=== PATIENT | female | born 1975 | race Caucasian/White ===

== ENCOUNTER 2022-05-18 13:29 | Outpatient (CLI) | payer BC, SELFPAY ==
[2022-05-18 22:23] LABS: Iron* 65 ug/dL (37-170)
[2022-05-18 22:26] LABS: Albumin* 4.2 g/dL (3.3-5.0); Chloride* 107 mmol/L (96-114); Potassium* 4.5 mmol/L (3.6-5.1); Sodium* 141 mmol/L (135-149)
[2022-05-18 22:28] LABS: Carbon Dioxide* 28 mmol/L (20-32); Cholesterol* 177 mg/dL (90-199); Creatinine* 0.6 mg/dL (0.5-1.5); Estimated Glomerular Filt Rate 111 ml/min
[2022-05-18 22:29] LABS: Alanine Aminotransferase* 31 U/L (4-35); Alkaline Phosphatase* 86 U/L (40-150); Aspartate Amino Transferase* 29 U/L (12-35); Bilirubin Total* 0.7 mg/dL (0.1-1.5); Blood Urea Nitrogen* 12 mg/dL (5-24); Calcium* 9.1 mg/dL (8.4-10.6); Glucose* 84 mg/dL (60-115); HDL Cholesterol* 43 mg/dL (>=50); LDL Cholesterol Calculated 115 mg/dL (<100); Triglycerides* 96 mg/dL (40-149)
[2022-05-18 22:33] LABS: Percent Iron Saturation 19 % (20-50); Total Iron Binding Capacity 337 ug/dL (265-497)
== END 2022-05-18 13:30 | disposition home or self-care (01) ==
PROVIDERS: PCP Nurse Practitioner Family; Visit Provider Nurse Practitioner Family
DX: R53.83 Other fatigue (principal); Z13.6 Encounter for screening for cardiovascular disorders
CPT/HCPCS: 80053; 80061; 83540; 83550; 84443

== ENCOUNTER 2023-03-29 10:19 | Outpatient (CLI) | payer OTHER, BC, SELFPAY | END 2023-03-29 10:20 | disposition home or self-care (01) | LOC: LONREF 10:21 | PROVIDERS: PCP Nurse Practitioner Family; Visit Provider Nurse Practitioner Family | DX: L65.9 Nonscarring hair loss, unspecified (principal); R53.83 Other fatigue | CPT/HCPCS: 84443 ==

== ENCOUNTER 2023-06-28 12:35 | Outpatient (CLI) | payer OTHER, BC, SELFPAY ==
--- OUTSIDE RECORDS SUMMARY | 2023-06-28 12:55 | XMS_ITS | Encounter Summary ---
Author Name Unknown Organization [facility] Address [address] [place] [address] Care Team Providers Care Pouncer Name Role Phone Elsewhere, Pcp Primary Care Provider Unavailabl e Reason for Visit * Reason Comments Med Refill Encounter Details Date Type Department Care Team (Late st Contact Info) Description 08/03/2022 Refill Department of Obstetrics and Gynecology in [place], [place] [address] [place] [phone] Jaswant Dominique M.D. [address] [place] [phone] Med Refill Social History Tobacco Use Types Packs/Day Years Used Date Smoking Tobacco: Never Smokeless Tobacco: Never Alcohol Use Standard Drinks/Week Comments No 0 (1 standard drink = 0.6 oz pur e alcohol) Humiliation, Afraid, Rape, and Kick questionnair e Answer Date Recorded Within the last year, have y ou been afraid of your partner or ex-partner? No 01/04/2021 Within the last year, have y ou been humiliated or emotionally abused in other ways by your partner or ex-partner? No Within the last year, have y ou been kicked, hit, slapped, or otherwise physically hurt by your partner or ex-partner? No 01/04/2021 Within the last year, have y ou been raped or forced to have any kind of sexual activity by your partner or ex-partner? No 01/04/2021 Social Connection and Isolat ion Panel [NHANES] Answer Date Recorded In a typical week, how many times do you talk on the phone with family, friends, or neighbors? More than three times a week 01/04/2021 How often do you get togethe r with friends or relatives? More than three times a week 01/04/2021 How often do you attend chur ch or oriental orthodox services? More than 4 times per year 01/04/2021 Do you belong to any clubs o r organizations such as lutheran groups, unions, fraternal or athletic groups, or school groups? Yes 01/04/2021 How often do you attend meet ings of the clubs or organizations you belong to? More than 4 times per year 01/04/2021 Are you , , di vorced, , never , or living with a partner? 01/04/2021 AUDIT-C Answer Date Recorded Q1: How often do you have a drink containing alc ohol? 2-3 times a week 01/04/2021 Q2: How many drinks containi ng alcohol do you have on a typical day when you are drinking? 1 or 2 01/04/2021 Q3: How often do you have si x or more drinks on one occasion? Never 01/04/2021 Overall Financial Resource Strain (CARDIA) Answe r Date Recorded How hard is it for you to pa y for the very basics like food, housing, medical care, and heating? Not hard at all 01/04/2021 PHQ-2 Answer Date Recorded PHQ-2 Score 0 11/06/2018 [facility] Questionnaire Answer Date Recorded Do you feel stress - tense, restless, nervous, or anxious, or unable to sleep at night because your mind is troubled all the time - these days? Only a little 01/04/2021 Exercise Vital Sign Answer Date Recorde d On average, how many days pe r week do you engage in moderate to strenuous exercise (like a brisk walk)? 5 days 01/04/2021 On average, how many minutes do you engage in exercise at this level? 50 min 01/04/2021 Hunger Vital Sign Answer Date Recorded Within the past 12 months, y ou worried that your food would run out before you got the money to buy more. Never true 01/05/20 21 Within the past 12 months, t he food you bought just didn't last and you didn't have money to get more. Never true 01/04/2021 PRAPARE - Transportation Answer Date Re corded In the past 12 months, has l ack of transportation kept you from medical appointments or from getting medications? No 08/2020 In the past 12 months, has l ack of transportation kept you from meetings, work, or from getting things needed for daily living? No 01/04/2021 Housing Stability Vital Sign Answer Tahir e Recorded In the last 12 months, was t here a time when you were not able to pay the mortgage or rent on time? No 01/04/2021 In the last 12 months, how many places have you lived? 1 01/04/2021 In the last 12 months, was t here a time when you did not have a steady place to sleep or slept in a care home (including now)? No 01/04/2021 Nutrition Answer Date Recorded Nutrition: EVOO Fat Source No 01/04 On average, how many serving s of fruits and vegetables do you eat per day (serving size is equal to 1 cup or approximately the size of a tennis ball)? 2-3 01/04/2021 Dental Answer Date Recorded Dental: Regular Dentist Yes 06/01/20 Employment Answer Date Recorded Employment status N/A 01/04/2021 Education Answer Date Recorded What is the highest level of school you have completed or the highest degree you have received? Associate degree: occupational, technical, or vocational program 08/07/2020 Sex and Gender Information Value Date Recorded Sex Assigned at Female 09/24/2017 7:50 PM CDT Gender Identity Female 09/24/2017 7:50 PM CDT Sexual Orientation Straight 09/24/2017 7: 50 PM CDT documented as of this encounter Plan of Treatment Not on file documented as of this encounter Visit Diagnoses Not on filedocumented in this encounter Additional Health Concerns Assessment Noted Time PHQ-9 Depression Total Score: 2 02/05/20 13 3:39 PM CDT documented as of this encounter Care Teams Pouncer Relationship Specialty Start Date End Date Elsewhere, Pcp PCP - General Internal Medicine 07/12/22 documented as of this encounter
--- OUTSIDE RECORDS SUMMARY | 2023-06-28 12:55 | XMS_ITS | Referral Summary ---
Author Name Unknown Organization [facility] Address [address] [place] [address] Care Team Providers Care Washer Off Name Role Phone Elsewhere, Pcp Primary Care Provider Unavailabl e Source Comments Patient records contain information from all sites at [facility]. For routine questions regarding patient records, call [phone] during business hours, M-F 8:00 AM - 5:00 PM Central Time. Record requests for emergency care only can be directed to [phone] at any time.[facility] Encounters Date Type Department Care Team Description 04/16/2023 Clinical Communication Department of Obstetrics and Gynecology in [place] [address] [place] [phone] Edmundo Livingston Jr., M.D. 04/02/2023 Clinical Communication Department of Obstetrics and Gynecology in [place] [address] [place] [phone] Edmundo Livingston Jr., M.D. from Last 3 Months Allergies Active Allergy Reactions Criticality Noted Date Comments [place] Other (see comments) 04/18/2017 ? Respiratory distress Cephalexin Other (see comments) 12/30/2015 ? Respiratory distress Meperidine Other (see comments) 12/30/2015 itching Latex Other (see comments) 12/30/2015 rash Medications Medication Sig Dispensed Refills Start Date End Date Status EPINEPHRINE INJ Inject 0.3 mg intramuscularly once. 0 3 Active prednisoLONE acetate (PRED FORTE) 1 % ophthalmic suspension SHAKE LIQUID AND INSTILL 1 DROP IN BOTH EYES FOUR TIMES DAILY FOR 1 WEEK 0 1 Active Nasacort 55 mcg nasal spray Administer 2 sprays into each nostril daily. 0 1 Active docusate sodium (COLACE) 100 mg capsule Take 1 capsule (100 mg total) by mouth 2 (two) times a day as needed for constipation. 100 capsule 1 3 Active Additional Information Patient not taking.Reported on 09/12/2022 ondansetron ODT (ZOFRAN-ODT) 4 mg disintegrating tablet Dissolve 1 tablet (4 mg total) in the mouth every 8 (eight) hours as needed for nausea or vomiting. 20 tablet 11 3 Active fluconazole (DIFLUCAN) 150 mg tablet Take 1 tablet (150 mg total) by mouth daily. Take 1 tablet (150 mg total) by mouth every third day as needed (yeast infection). Repeat in 3 days if symptoms persist. 2 tablet 0 3 Active Active Problems Problem Noted Date Diagnosed Date Prolapse Uterine 01/17/2021 Overview: Status post total laparoscopic hysterectomy on 07/13/2022 with good results. Cystocele 12/22/2020 Overview: 07/13/2022: Total laparoscopic hysterectomy with resolution of cystocele. No repair done at that time. Postoperatively patient asymptomatic. Fatty Liver 02/28/2019 Family History Of Malignant Neoplasm Of Digestiv e Organs 08/28/2018 Night Sweats 04/03/2018 Menorrhagia 09/20/2017 Rhinitis Allergic 02/08/2017 Malignant Neoplasm Of Skin Basal Cell Carcinoma 09/29/2016 Overview: 1.) (Medium Importance) Result Comment by CONTRIBUTOR_SYSTEM, [email or web address] on September 28, 2016 11:40 CDT A. DermPath Consultation, Wet Tissue; left upper back: Superficial basal cell carcinoma, borders appear free of tumor Comment: Absence of tumor at borders in sections from a shave or punch specimen does not necessarily indicate that the lesion has been completely removed. Clinical and pathological correlation is recommended to determine adequacy of removal. B. 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 At this time, we will have her see Cristina Cevallos for pessary next week. I will then see her in 2 weeks for recheck. We will decide at that time what to do next. Pelvic And Perineal Pain 01/17/2018 Elderly Multigravi da Greater Than 35 Year Old 07/10/2016 01/17/2018 Fibroid Uterus Intramural 07/10/2016 Overview: <2cm fibroid stable. Tinea Corporis 10/23/2014 01/17/2018 Nevus Atypical 08/12/2014 01/17/2018 Nevus Benign 08/12/2014 01/17/2018 Diabetes Mellitus Gestational 10/30/2013 08/11/2020 Immunizations Name Administration Dates Next Due Rho (D) Immune Globulin (IM only) 01/07/2016,07/2011,10/04/2010 Td (Adult), adsorbed 10/19/2004 Tetanus Toxoid, Adsorbed (discontinued) 10/20/19 05 Social History Tobacco Use Types Packs/Day Years Used Date Smoking Tobacco: Never Smokeless Tobacco: Never Tobacco Cessation:Counseling Given: Not Answered Alcohol Use Standard Drinks/Week Comments No 0 [...] 01/04/2021 How often do you attend chur or religion services? More than 4 times per year 01/04/2021 Do you belong to any clubs o r organizations such as quaker groups, unions, fraternal or athletic groups, or [...] Answer Date Recorded PHQ-2 Score 0 11/06/2018 [facility] of Occupat ional Health - Occupational Stress Questionnaire Answer Date Recorded [...] place to sleep or slept in a long-term (including now)? No 01/04/2021 Nutrition Answer Date [...] Orientation Straight 09/24/2017 7: 50 PM CDT Last Filed Vital Signs Vital Sign Reading Time Taken Comments Blood Pressure 108/70 09/12/2022 10:19 AM CDT Pulse 68 09/12/2022 10:19 AM CDT Temperature 36.7 ??C (98.1 ??F) 07/19/2022 3:51 PM CS T Respiratory Rate 16 09/12/2022 10:19 AM CDT Oxygen Saturation 98% 07/26/2020 10:19 AM LEAKAGE TESTER Inhaled Oxygen Concentration - - Weight 101 kg (221 lb 14.3 oz) 09/12/2022 10:19 AM CDT Height 157.8 cm (5' 2.13) 06/21/2022 9:07 AM CS T Body Mass Index 40.42 06/21/2022 9:07 AM LEAKAGE TESTER Plan of Treatment Not on file Administered Medications Care Teams Washer Off Relationship Specialty Start Date End Date Elsewhere, Pcp PCP - General Internal Medicine 07/12/22
--- OUTSIDE RECORDS SUMMARY | 2023-06-28 12:55 | XMS_ITS | Encounter Summary ---
Author Name Unknown Organization [facility] Address [address] [place] [address] Care Team Providers Care Sticker Operator Name Role Phone Elsewhere, Pcp Primary Care Provider Unavailabl e Reason for Visit * Reason Comments Post-op Visit * Outpatient (Routine) - Closed Specialty Diagnoses / Procedures Referred By Contac t Referred To Contact Obstetrics and Gynecology Edmundo Livingston Jr., M.D. [address] [phone] [facility] Region Referral ID Status Reason Start Date Expiration Date Visits Re quested Visits Authorized [id number] Closed 07/19/2022 07/18/2025 1 1 Encounter Details Date Type Department Care Team (Late st Contact Info) Description 07/19/2022 3:30 PM ANGLE SHEAR SET UP OPERATOR Office Visit Department of Obstetrics and Gynecology in [address] [place] [phone] Edmundo Livingston Jr., M.D. [address], [place] [address] Acute Vaginitis (Primary Dx) Social History Tobacco Use Types Packs/Day Years [...] How often do you attend chur or adventist services? More than 4 times per year 01/04/2021 Do you belong to any clubs o r organizations such as moravian groups, unions, fraternal or athletic groups, or [...] Answer Date Recorded PHQ-2 Score 0 11/06/2018 [facility] of Occupat ional Health - Occupational Stress [...] place to sleep or slept in a fdc (including now)? No 01/04/2021 Nutrition Answer Date [...] PM CDT documented as of this encounter Last Filed Vital Signs Vital Sign Reading Time Taken Comments Blood Pressure 130/84 07/19/2022 3:51 PM ANGLE SHEAR SET UP OPERATOR Pulse - - Temperature 36.7 ??C (98.1 ??F) 07/19/2022 3:51 PM CS T Respiratory Rate - - Oxygen Saturation - - Inhaled Oxygen Concentration - - Weight 99.9 kg (220 lb 3.8 oz) 07/19/2022 3:51 P M ANGLE SHEAR SET UP OPERATOR Height - - Body Mass Index 40.12 06/21/2022 9:07 AM ANGLE SHEAR SET UP OPERATOR documented in this encounter Progress Notes * Edmundo Livingston Jr., M.D. - 07/19/2022 3:30 PM CST SUBJECTIVE CHIEF COMPLAINT/REASON FOR VISIT Postoperative visit for total laparoscopic hysterectomy on 07/13/22. Patient was doing well but then now has been proximally 4 days without having bowel movement. She is also had onset of significant perineal itching and little bit of whitish discharge around her introitus. Bladder emptying is normal. She is tolerating liquids and food well. No fevers. HISTORY OF PRESENT ILLNESS Idania Trejo presents to the clinic for a post op visit. There are no further concerns at this time. ALLERGIES/CONTRAINDICATIONS Allergies Allergen Reactions [place] Other (see comments) ? Respiratory distress Cephalexin Other (see comments) ? Respiratory distress Demerol [Meperidine] Other (see comments) itching Latex Other (see comments) rash OBJECTIVE VITAL SIGNS BP 130/84 Temp 36.7 ??C (Temporal) Wt 99.9 kg LMP 06/11/2022 BMI 40.12 kg/m?? PHYSICAL EXAMINATION General: Patient appears well groomed and well nourished. No acute distress. Oriented times three. Skin: Normal without any evidence of rash or lesions. Abdomen: Soft and nontender. No masses, hepatosplenomegaly or hernias noted. No enlarged groin nodes palpable. Rectum: Deferred. Genitalia: External genitalia: Whitish discharge and is somewhat excoriated area in her perineal region consistent with yeast. Internal vaginal tissue appears fairly healthy. No significant cystocele. DIAGNOSTICS Pathology ASSESSMENT / PLAN #1 Postoperative care PLAN: Patient needs help with bowel movements now that she is become constipated. Prescription for milk of magnesia is sent. She will continue with stool softeners, warm prune juice, and prunes as needed. Will treat yeast with topical Mycolog and Diflucan. She will let us know tomorrow how she is doing. #2 Follow up PLAN: Patient will contact the clinic tomorrow and has a regularly scheduled appointment in 6 days. E SHEAR SET UP OPERATOR documented in this encounter Plan of Treatment Not on file documented as of this encounter Visit Diagnoses Diagnosis Acute Vaginitis- Primary documented in this encounter Additional Health Concerns Assessment Noted Time PHQ-9 Depression Total Score: 2 02/05/20 13 3:39 PM CDT documented as of this encounter Care Teams Sticker Operator Relationship Specialty Start Date End Date Elsewhere, Pcp PCP - General Internal Medicine 07/12/22 documented as of this encounter
--- OUTSIDE RECORDS SUMMARY | 2023-06-28 12:55 | XMS_ITS | Encounter Summary ---
Author Name Unknown Organization [facility] Address [address] [place] [address] Care Team Providers Care Superintendent Plant Name Role Phone Elsewhere, Pcp Primary Care Provider Unavailabl e Encounter Details Date Type Department Care Team (Late st Contact Info) Description 04/02/2023 Clinical Communication Department of Obstetrics and Gynecology in [place], [place] [address] [place] [address] Edmundo Livingston Jr., M.D. [address] [place] [address] Social History Tobacco Use Types Packs/Day Years [...] often do you attend chur ch or church services? More than 4 times per year 01/04/2021 Do you belong to any clubs o r organizations such as denominational groups, unions, fraternal or athletic groups, or [...] Answer Date Recorded PHQ-2 Score 0 11/06/2018 [facility] of Occupat ional [facility] - Occupational Stress Questionnaire Answer Date Recorded [...] place to sleep or slept in a intermediate (including now)? No 01/04/2021 Nutrition Answer Date [...] PM CDT documented as of this encounter Miscellaneous Notes * Telephone Encounter - Svitlana Caputo R.N. - 04/02/2023 9:15 AM CDT Phone call to patient and made aware Dr Livingston is out of the clinic until next week and responding to messages on a limited basis. She requested her previous portal message be sent to Dr Livingston-completed per request documented in this encounter Plan of Treatment Not on file documented as of this encounter Visit Diagnoses Not on filedocumented in this encounter Additional Health Concerns Assessment Noted Time PHQ-9 Depression Total Score: 2 02/05/20 13 3:39 PM CDT documented as of this encounter Care Teams Superintendent Plant Relationship Specialty Start Date End Date Elsewhere, Pcp PCP - General Internal Medicine 07/12/22 documented as of this encounter
--- OUTSIDE RECORDS SUMMARY | 2023-06-28 12:55 | XMS_ITS | Encounter Summary ---
Author Name Unknown Organization [facility] Address [address] [place] [address] Care Team Providers Care Maintenance Job Titles Name Role Phone Elsewhere, Pcp Primary Care Provider Unavailabl e Reason for Visit * Reason Onset Date Comments RX DENIAL 07/27/2022 NYSTATIN-TRIAMCI NOLONE 100,000-0.1 OINTMENT Encounter Details Date Type Department Care Team (Latest Contact Info) Description 07/27/2022 Clinical Communication Pharmacy Prior Auth [id number] Ting Landaverde RX DENIAL (NYSTATIN-TRIAMCINO LONE 100,000-0.1 OINTMENT) Social History Tobacco Use Types Packs/Day Years [...] often do you attend chur ch or alevism services? More than 4 times per year 01/04/2021 Do you belong to any clubs o r organizations such as buddhism groups, unions, fraternal or athletic groups, or [...] Answer Date Recorded PHQ-2 Score 0 11/06/2018 [facility] of Occupat ional Health - Occupational [...] place to sleep or slept in a nursing home (including now)? No 01/04/2021 Nutrition Answer [...] encounter Miscellaneous Notes * Telephone Encounter - Sandra Dee R.N. - 07/28/2022 8:20 AM CST Pt is aware prior auth was denied. She would like medication released to pharmacy to pay out of pocket for it. UITER * Telephone Encounter - Cornelius Buckley - 07/28/2022 7:47 AM CST Images from the original note were not included. The patient's health insurer has denied prior authorization for [NYSTATIN- TRIAMCINOLONE 100,000-0.1OINTMENT]. A quick view of the denial reason is in this communication message. To view the denial letter: Go to Snapshot Go to the purple Medications box Click on the blue Prior Authorizations link Under Denied, click on the blue medication link to open and view the attachment. As the prescriber, your options are: Appeal the decision to the insurer directly (see denial letter for how to appeal). Write a new Rx for an alternative medication therapy. Release the Rx to the pharmacy so the patient can pay out of pocket if they desire. To Release Rx: Open this encounter, go to Meds & Orders, click on the medication, and click theblue ???Release Rx?? button. PLEASE NOTE: If the ???Release Rx?? button is not visible, the Rx has already been released to thepharmacy. If you have questions, please reply via to [facility] Specialty EPA POOL. Thank you, The OPPA Team UITER documented in this encounter Plan of Treatment Not on file documented as of this encounter Visit Diagnoses Not on filedocumented in this encounter Additional Health Concerns Assessment Noted Time PHQ-9 Depression Total Score: 2 02/05/20 13 3:39 PM CDT documented as of this encounter Care Teams Maintenance Job Titles Relationship Specialty Start Date End Date Elsewhere, Pcp PCP - General Internal Medicine 07/12/22 documented as of this encounter
--- OUTSIDE RECORDS SUMMARY | 2023-06-28 12:55 | XMS_ITS | Encounter Summary ---
Author Name Unknown Organization [facility] Address [address] [place] [address] Care Team Providers Care Assistant Account Executive Name Role Phone Elsewhere, Pcp Primary Care Provider Unavailabl e Reason for Visit * Reason Comments Post-op Visit * Appointment Request (Routine) - Closed Specialty Diagnoses / Procedures Referred By Contac t Referred To Contact Obstetrics and Gynecology Referral ID Status Reason Start Date Expiration Date Visits Re quested Visits Authorized [id number] Closed 07/31/2022 07/31/2023 1 1 Encounter Details Date Type Department Care Team (Latest Contact Info) Description 08/02/2022 2:30 PM GENERATOR REPAIRER Office Visit Department of Obstetrics and Gynecology in [address] [phone] Jaswant Dominique M.D. [address] [place] [phone] Follow Up Examination Postoperative Visit (Primary Dx) Social History Tobacco Use Types [...] ways by your partner or ex-partner? No 08 /08/2020 Within the last year, have y ou [...] How often do you attend chur or sabianist services? More than 4 times per year 01/04/2021 Do you belong to any clubs o r organizations such as nondenominational groups, unions, fraternal or athletic groups, or [...] Answer Date Recorded PHQ-2 Score 0 11/06/2018 [facility] [place] of Occupat ional Health - Occupational Stress [...] place to sleep or slept in a residential (including now)? No 01/04/2021 Nutrition Answer Date Recorded Nutrition: EVOO Fat Source No 01/04 On average, how many serving s of fruits and vegetables do you eat per day (serving size is equal to 1 cup or approximately the size of a tennis ball)? 2-3 01/04/2021 Dental Answer Date Recorded Dental: Regular Dentist Yes 06/01/20 22 Employment Answer Date Recorded Employment status N/A [...] Sign Reading Time Taken Comments Blood Pressure 102/78 08/02/2022 2:24 PM GENERATOR REPAIRER Pulse - - Temperature - - Respiratory Rate - - Oxygen Saturation - - Inhaled Oxygen Concentration - - Weight 97.1 kg (214 lb 2.8 oz) 08/02/2022 2:24 P M GENERATOR REPAIRER Height - - Body Mass Index 39.01 06/21/2022 9:07 AM GENERATOR REPAIRER documented in this encounter Progress Notes * Jaswant Dominique M.D. - 08/02/2022 2:30 PM CST Postop status post a total laparoscopic hysterectomy, bilateral salpingectomy on July 13. Surgery was uncomplicated. She has been struggling with constipation which is causing significant pelvic discomfort, now managed with daily stool softeners. She presents giving a recent dry cough which is increasing pelvic pressure and has been accompanied by passage of clots vaginally. Denies any other pelvic pain, discomfort, or any other vaginal symptoms. No concerns with voiding. Vitals: 08/02/22 1424 BP: 102/78 Weight: 97.1 kg Body mass index is 39.01 kg/m??. Normal vaginal exam, cuff is intact, no bleeding, no discharge, nontender, no appreciable masses atthe cuff Reviewed exam findings and gave reassurance to the patient. suggesting hot beverages, cough drops, and cough suppressants to decrease strain on the vaginal cuff while it is recovering. Also advising her to continue the stool softeners. Jaswant Dominique M.D. 08/02/2022 2:41 PM GENERATOR REPAIRER RATOR REPAIRER documented in this encounter Plan of Treatment Not on file documented as of this encounter Visit Diagnoses Diagnosis Follow Up Examination Postoperative Visit- Primary documented in this encounter Additional Health Concerns Assessment Noted Time PHQ-9 Depression Total Score: 2 02/05/20 13 3:39 PM CDT documented as of this encounter Care Teams Assistant Account Executive Relationship Specialty Start Date End Date Elsewhere, Pcp PCP - General Internal Medicine 07/12/22 documented as of this encounter
--- OUTSIDE RECORDS SUMMARY | 2023-06-28 12:55 | XMS_ITS ---
Author Name Unknown Organization [facility] Address [address] [place] [address] Care Team Providers Care Sister Superior Name Role Phone Unavailable Unavailable Unavailable Surgery Details Not on file Complications Check Surgery Details section. Procedure Estimated Blood Loss Check Surgery Details section. Procedure Findings Check Surgery Details section. Procedure Specimens Taken Check Surgery Details section.
--- OUTSIDE RECORDS SUMMARY | 2023-06-28 12:55 | XMS_ITS | Encounter Summary ---
Author Name Unknown Organization [facility] Address [address] [place] [address] Care Team Providers Care Draw Frame Operator Name Role Phone Elsewhere, Pcp Primary Care Provider Unavailabl e Encounter Details Date Type Department Care Team (Late st Contact Info) Description 07/24/2022 Clinical Communication Pharmacy Prior Auth JR [phone] Suzanne Lynne Social History Tobacco Use Types Packs/Day Years [...] often do you attend chur ch or yarsanism services? More than 4 times per year 01/04/2021 Do you belong to any clubs o r organizations such as islam groups, unions, fraternal or athletic groups, or [...] Answer Date Recorded PHQ-2 Score 0 11/06/2018 [facility] of Occupat ional Health - Occupational [...] medical appointments or from getting medications? No 0808/2020 In the past 12 months, has l [...] place to sleep or slept in a half-way (including now)? No 01/04/2021 Nutrition Answer Date [...] documented as of this encounter Care Teams Draw Frame Operator Relationship Specialty Start Date End Date Elsewhere, Pcp PCP - General Internal Medicine 07/12/22 documented as of this encounter
--- OUTSIDE RECORDS SUMMARY | 2023-06-28 12:55 | XMS_ITS | Encounter Summary ---
Author Name Unknown Organization [facility] Address [address] [place] [address] Care Team Providers Care Tool Analyst Name Role Phone Elsewhere, Pcp Primary Care Provider Unavailabl e Reason for Visit * Reason Comments Post-op Visit * Appointment Request (Routine) - Closed Specialty Diagnoses / Procedures Referred By Contac t Referred To Contact Obstetrics and Gynecology Referral ID Status Reason Start Date Expiration Date Visits Re quested Visits Authorized [id number] Closed 07/25/2022 07/25/2023 1 1 Encounter Details Date Type Department Care Team (Late st Contact Info) Description 09/12/2022 10:15 AM CDT Office Visit Department of Obstetrics and Gynecology in [address] [phone] Edmundo Livingston Jr., M.D. [address] [phone] Pain Pelvic Female (Primary Dx); Cystocele; Prolapse Uterine Discharge Disposition: Home or Self Care Social History Tobacco Use Types Packs/Day Years [...] any clubs o r organizations such as taoism groups, unions, fraternal or athletic groups, or [...] Answer Date Recorded PHQ-2 Score 0 11/06/2018 [facility] [place] of Occupat ional Health - Occupational Stress [...] place to sleep or slept in a alf (including now)? No 01/04/2021 Nutrition Answer Date [...] Pulse 68 09/12/2022 10:19 AM CDT Temperature - - Respiratory Rate 16 09/12/2022 10:19 AM CDT Oxygen Saturation - - Inhaled Oxygen Concentration - - Weight 101 kg (221 lb 14.3 oz) 09/12/2022 10:19 AM CDT Height - - Body Mass Index 40.42 06/21/2022 9:07 AM EXTRUSION BENDER documented in this encounter Progress Notes * Edmundo Livingston Jr., M.D. - 09/12/2022 10:15 AM CDT SUBJECTIVE CHIEF COMPLAINT/REASON FOR VISIT Postoperative visit for total laparoscopic hysterectomy on 07/13/22. HISTORY OF PRESENT ILLNESS Idania Trejo presents to the clinic for a post op visit. She is done well postoperatively. Had initial issues with constipation which were pretty significant but that has resolved and she is doing well. Bowel bladder function is now normal. Her pelvic pain has resolved. She is starting walking and wants to be able to work out again. In her hands and legs when she starts to walk at this time. She is happy with the surgery but would like to be able to lose weight. Advised to chart her food make sure she is doing consistent exercise and consider primary care referral. She would possibly be acandidate for Ozempic. There are no further concerns at this time. ALLERGIES/CONTRAINDICATIONS Allergies Allergen Reactions [place] Other (see comments) ? Respiratory distress Cephalexin Other (see comments) ? Respiratory distress Demerol [Meperidine] Other (see comments) itching Latex Other (see comments) rash OBJECTIVE VITAL SIGNS BP 108/70 Pulse 68 Resp 16 Wt 101 kg LMP 06/11/2022 BMI 40.42 kg/m?? PHYSICAL EXAMINATION General: Patient appears well groomed and well nourished. No acute distress. Oriented times three. Skin: Normal without any evidence of rash or lesions. Pelvis: Vaginal cuff is healing very well with excellent support. Minimal cystocele noted. Tissue is healthy. No sutures are visible. Normal bimanual exam Rectum: Deferred. Genitalia: External genitalia: Bartholin's, urethral, and [place]'s glands within normal limits. DIAGNOSTICS Pathology reviewed: Normal tubes and uterus with small fibroid noted. ASSESSMENT / PLAN #1 Postoperative care PLAN: Doing very well can start resuming normal activities #2 Follow up/weight loss PLAN: Should chart diet probably needs to increase her calorie somewhat. Start consistent exercise.Consider primary care referral if needed. Patient will contact the clinic with any WINDOW AIR CONDITIONER INSTALLER related concerns. documented in this encounter Plan of Treatment Not on file documented as of this encounter Visit Diagnoses Diagnosis Pain Pelvic Female- Primary Cystocele Prolapse Uterine documented in this encounter Additional Health Concerns Assessment Noted Time PHQ-9 Depression Total Score: 2 02/05/20 13 3:39 PM CDT documented as of this encounter Care Teams Tool Analyst Relationship Specialty Start Date End Date Elsewhere, Pcp PCP - General Internal Medicine 07/12/22 documented as of this encounter
--- OUTSIDE RECORDS SUMMARY | 2023-06-28 12:55 | XMS_ITS | Clinical Summary ---
Author Name Unknown Organization [facility] Address [address] [place] [address] Care Team Providers Care Mineral Surveying Technician Name Role Phone Elsewhere, Pcp Primary Care Provider Unavailabl e Source Comments Patient records contain information from all sites at [facility]. For routine questions regarding patient records, call [phone] during business hours, M-F 8:00 AM - 5:00 PM Central Time. Record requests for emergency care only can be directed to [phone] at any time.[facility] Allergies Active Allergy Reactions Criticality Noted Date Comments [place] Other (see comments) 04/18/2017 ? Respiratory distress [...] Date Resolved Date Pain Pelvic Female 01/17/2018 3 Overview: She has posterior uterus tenderness and [...] 08/12/2014 01/17/2018 Diabetes Mellitus Gestational 10/30/2013 08/11/2020 Encounters Date Type Department Care Team Description 04/16/2023 Clinical Communication Department of Obstetrics and Gynecology in [address] [phone] Edmundo Livingston Jr., M.D. 04/02/2023 Clinical Communication Department of Obstetrics and Gynecology in [address] [phone] Edmundo Livingston Jr., M.D. from Last 3 Months Immunizations Name Administration Dates Next Due Rho (D) Immune Globulin (IM only) 01/07/2016,07/2011,10/04/2010 Td (Adult), adsorbed 10/19/2004 Tetanus Toxoid, Adsorbed (discontinued) 10/20/19 05 Family History Medical History Relation Name Comments Eczema Daughter Esophageal cancer Father Skin cancer Grandfather Heart attack Maternal Grandfather Heart attack Maternal Grandmother S/P tri ple bypass Uterine cancer Maternal Grandmother Colon cancer Mother Eczema Mother Hay fever Mother defects Other Paternal aunt Lymphoma Son Relation Name Status Comments Daughter Father Grandfather Maternal Grandfather Maternal Grandmother Mother Other Paternal aunt Son Social History Tobacco Use Types Packs/Day Years [...] often do you attend chur ch or islam services? More than 4 times per year 01/04/2021 Do you belong to any clubs o r organizations such as gnosticism groups, unions, fraternal or athletic groups, or [...] Answer Date Recorded PHQ-2 Score 0 11/06/2018 [facility] of Occupat ional Health - Occupational Stress [...] place to sleep or slept in a snf (including now)? No 01/04/2021 Nutrition Answer Date [...] CDT Oxygen Saturation 98% 07/26/2020 10:19 AM SEARCH AND RESCUE OFFICER Inhaled Oxygen Concentration - - Weight 101 kg (221 lb 14.3 oz) 09/12/2022 10:19 AM CDT Height 157.8 cm (5' 2.13) 06/21/2022 9:07 AM CS T Body Mass Index 40.42 06/21/2022 9:07 AM SEARCH AND RESCUE OFFICER Plan of Treatment Health Maintenance Due Date Last Done Comments CT Colonography 1974 Cologuard 1974 Hepatitis B Vaccines (1 of 3 - 3-dose series) 1974 Hepatitis C Screening 1974 Mammogram 1974 COVID-19 Vaccine (#1) 03/25/1975 Hepatitis A Vaccines (1 of 2 - Risk 2-dose series) 1993 DTaP,Tdap,and Td Vaccines (1 - Tdap) 10/20/2004 10/19/2004 Influenza Vaccine (#1) 2023 Depression Screening (Annual PHQ-2) 06/04/2023 Fasting Glucose for Diabetes Screening 05/24/2024 05/24/2021, 02/18/2021, 02/03/2021, Additional history exists Lipid (Cholesterol) Screening 02/18/2026 02/18/2021, 08/28/2018, 02/20/2017, Additional history exists Colonoscopy 12/20/2026 12/20/2021 Colorectal Cancer Surveillance 12/20/2026 HIV Screening Completed 12/30/2015, 04/09/2013 Cervical Cancer Screening Discontinued 2022, 06/21/2022, 07/23/2020, Additional history exists Pneumococcal vaccine (0-64 years) Aged Out No longer eligible based on patient's age to complete this topic Care Teams Mineral Surveying Technician Relationship Specialty Start Date End Date Elsewhere, Pcp PCP - General Internal Medicine 07/12/22
--- OUTSIDE RECORDS SUMMARY | 2023-06-28 12:55 | XMS_ITS | Encounter Summary ---
Author Name Unknown Organization [facility] Address [address] [place] [address] Care Team Providers Care Channel Marketing Specialist Name Role Phone Elsewhere, Pcp Primary Care Provider Unavailabl e Encounter Details Date Type Department Care Team (Late st Contact Info) Description 07/31/2022 Clinical Communication Department of Obstetrics and Gynecology in [place], [place] [address] [place] [phone] Jaswant Dominique M.D. [address] [place] [phone] Social History Tobacco Use Types Packs/Day Years [...] often do you attend chur ch or shinto services? More than 4 times per year 01/04/2021 Do you belong to any clubs o r organizations such as druze groups, unions, fraternal or athletic groups, or [...] Answer Date Recorded PHQ-2 Score 0 11/06/2018 [facility] - Occupational Stress Questionnaire Answer Date [...] Telephone Encounter - Svitlana Caputo R.N. - 07/31/2022 12:20 PM PLAYGROUND MONITOR PLAN The following information was provided: Dr Dominique's recommendations. Transferred to schedule appointment Information/Education: patient/caller able to teach back The following references were used: provider Dr Dominique GROUND MONITOR * Telephone Encounter - Svitlana Caputo R.N. - 07/31/2022 9:21 AM PLAYGROUND MONITOR ASSESSMENT 07/13/22 S/P: WI TUBOTUBAL ANASTATOMOSIS WI ANTERIOR COLPORRAPHY RPR CYSTOCELE W/CYSTO WI LAPAROSCOPY W/PLMT OCCLUSION DEVICE OVIDUCTS TOTAL LAPAROSCOPIC HYSTERECTOMY REPAIR ANTERIOR VAGINAL LAPAROSCOPIC BILATERAL SALPINGECTOMY Had post op appt cancelled last week d/t weather. States on Sunday noted passing large clots without any bleeding. Did call Dr Livingston on Sunday to discuss. Yesterday, noted to have red bleeding with clotting. She had to change pads 3 times yesterday.Has also noted that she has developed a random, tickling cough when she takes a deep breath. Describes as non productive. She denies fever. No known exposures, has not taken COVID test. Had concerns about cough after reading internet. Next appt 09/12/22. PLAN Discussed bleeding may continue to occur during post op period and recommend to monitor. Advised EDif saturating maxi pad hourly for 2 hours. Disposition/Recommendation: notified provider and awaiting recommendations. Information/Education: patient/caller able to teach back. Caller agreeable to plan of care: yes. The following references were used: nursing clinical judgement. GROUND MONITOR * Telephone Encounter - Kyara Aburto - 07/31/2022 8:39 AM CST Patient has some questions and would like to speak with the nurse or Dr. Dominique. Please call her back at [phone]. GROUND MONITOR documented in this encounter Plan of Treatment Not on file documented as of this encounter Visit Diagnoses Not on filedocumented in this encounter Additional Health Concerns Assessment Noted Time PHQ-9 Depression Total Score: 2 02/05/20 13 3:39 PM CDT documented as of this encounter Care Teams Channel Marketing Specialist Relationship Specialty Start Date End Date Elsewhere, Pcp PCP - General Internal Medicine 07/12/22 documented as of this encounter
--- OUTSIDE RECORDS SUMMARY | 2023-06-28 12:55 | XMS_ITS | Encounter Summary ---
Author Name Unknown Organization [facility] Address [address] [place] [address] Care Team Providers Care Core Driller Name Role Phone Elsewhere, Pcp Primary Care Provider Unavailabl e Encounter Details Date Type Department Care Team (Late st Contact Info) Description 04/16/2023 Clinical Communication Department of Obstetrics and Gynecology in [place], [place] [address] [place] [phone] Edmundo Livingston Jr., M.D. [address] [place] [phone] Social History Tobacco Use Types [...] often do you attend chur ch or episcopal services? More than 4 times per year 01/04/2021 Do you belong to any clubs o r organizations such as protestant groups, unions, fraternal or athletic groups, or [...] Answer Date Recorded PHQ-2 Score 0 11/06/2018 [facility] of Occupat ional [facility] - Occupational Stress Questionnaire Answer Date Recorded [...] place to sleep or slept in a custodial (including now)? No 01/04/2021 Nutrition Answer Date [...] Telephone Encounter - Svitlana Caputo R.N. - 04/16/2023 3:13 PM DISH WASHER ASSESSMENT Requesting call from Dr Livingston questions regarding uterus didelphys PLAN Disposition/Recommendation: notified provider and awaiting recommendations. Information/Education: patient/caller able to teach back. Caller agreeable to plan of care: yes. The following references were used: none. WASHER documented in this encounter Plan of Treatment Not on file documented as of this encounter Visit Diagnoses Not on filedocumented in this encounter Additional Health Concerns Assessment Noted Time PHQ-9 Depression Total Score: 2 02/05/20 13 3:39 PM CDT documented as of this encounter Care Teams Core Driller Relationship Specialty Start Date End Date Elsewhere, Pcp PCP - General Internal Medicine 07/12/22 documented as of this encounter
--- OUTSIDE RECORDS SUMMARY | 2023-06-28 12:56 | XMS_ITS | Clinical Summary ---
Author Name Unknown Organization [employer] [facility] Address [place], [place] [address] Care Team Providers Care People Greeter Name Role Phone Yvette Gan NP Primary Care Provider [phone] Allergies Active Allergy Reactions Criticality Noted Date Comments Suwannee Oil Respiratory Distress 07/25/2015 Meperidine Itching 11/21/2013 Cephalexin Respiratory Distress 07/25/2015 Latex Rash 11/21/2013 Medications Medication Sig Dispensed Refills Start Date End Date Status EPINEPHrine (EPIPEN) 0.3 mg/0.3 mL injectionIndications :Anaphylaxis, subsequent encounter Inject 0.3 mg intramuscular one time if needed for Allergic Reaction. 2 Each 1 02/18/2021 Active ondansetron (ZOFRAN ODT) 4 mg disintegrating tabletIndications:Na usea Place 1 Tablet (4 mg) on the tongue every 8 hours if needed for Nausea/Vomiting. 20 tablet. 0 09/05/2021 Active ascorbic acid, vitamin C, (Vitamin C) 1,000 mg tablet Take 1 Tablet (1,000 mg) by mouth once daily. 0 10/23/2022 Active Digestive Enzymes tablet Take 1 Tablet by mouth four times daily. 0 10/23/2022 Active budesonide (PULMICORT RESPULES) 0.5 mg/2 mL neb suspensionIndication s:Esophagitis, eosinophilic Inhale 2 mL (0.5 mg) via a nebulizer two times daily. 120 mL 2 12/25/2022 Active Additional Information Patient not taking.Reported on 02/07/2023 Phentermine HCl 30 mg capsule Take 30 mg by mouth once daily. 0 10/15/2022 Active pantoprazole (PROTONIX) 40 mg delayed-release tabletIndications:Eo sinophilic esophagitis Take 1 Tablet (40 mg) by mouth once daily before a meal. 90 Tablet 0 05/10/2023 Active Active Problems Problem Noted Date Diagnosed Date Fatty liver 02/28/2019 Hayfever 02/08/2017 Rhinitis, allergic 02/08/2017 Basal cell carcinoma (BCC) 09/29/2016 Overview: Overview: 1.) (Medium Importance) Result Comment by [...] Wet Tissue; left lateral thigh: Compound nevus Obesity with body mass index 30 or greater 07/10 Colon polyps 06/24/2015 Vitamin D deficiency 09/02/2014 GERD (gastroesophageal reflux disease) 5 Anxiety state, unspecified 07/17/2012 Generalized anxiety disorder 07/17/2012 Family history of esophageal cancer Epigastric pain Resolved Problems Problem Noted Date Diagnosed Date Resolved Date Uterine prolapse 01/17/2021 10/23/2022 10/23/2022 Overview: Status post total laparoscopic hysterectomy on 07/13/2022 with good results. Female cystocele 12/22/2020 10/23/2022 Overview: She will schedule a consult with Dr. Leblanc for next Sunday for his evaluation as well. Will tentatively schedule surgery for 02/21/21. Federal sterilization consent is signed today. She will return 1 week prior to surgery for preoperative evaluation. Female cystocele 12/22/2020 10/23/2022 10/23/2022 Overview: 07/13/2022: Total laparoscopic hysterectomy with resolution of cystocele. No repair done at that time. Postoperatively patient asymptomatic. Uterine leiomyoma 04/03/2018 10/23/2022 Menorrhagia 09/20/2017 10/23/2022 demise before 22 weeks with retention of fetus 03/05/2016 10/27/2016 Overview: OB ADMISSION NOTE CHIEF COMPLAINT: Admission for induction of labor for demise before 22 weeks by cytotec OBSTETRICAL / DATING HISTORY: Estimated Date of Delivery: 07/19/16 Gestational Age: 20w4d OB History Para Term AB SAB TAB Ectopic Multiple Living 10 9 1 9 # Outcome Date GA Lbr Edmund/2nd Weight Sex Delivery Anes PTL Lv 10 Current 9 Term 11/21/13 38w5d 3.345 kg (7 lb 6 oz) F Vag Y 8 Para 11/26/11 F Vag Y 7 Para 05/21/09 M Vag Y 6 Para 11/26/06 F Vag Y 5 Para 09/10/03 F Vag Y 4 Para 10/24/01 F Vag Y 3 Para 07/20/99 F Vag Y 2 Para 10/27/97 M Vag Y 1 Para 08/02/94 M Vag Y TESTING: [facility] Resulted Labs: Recent Labs 11/21/13 1125 ABORH O Rh Negative No results for input(s): RPR, TREPONEPALLI, RUBELLAABY, HBSAG, [id number] in the last 6720 hours. OUTSIDE LAB RESULT ENTRY-OB Blood Type: O RH: Negative Antibody Screen: Negative Rubella Status: Immune Treponema Pallidum Antibody Test: Negative VDRL/RPR: Non-reactive HbsAg: Negative Hep C: Negative HIV: Negative Additional Outside Labs? : No GBS Status: Not done PAST MEDICAL HISTORY: Past Medical History Diagnosis Date ? ? (spontaneous vaginal delivery) ? ? none PAST SURGICAL HISTORY: Past Surgical History Procedure Laterality Date ? ? Esophagogastroduodenoscopy 04/22/2012 Bx's- Normal ? ? Cholecystectomy ? ? Dilation and curettage X2 ? ? Colonoscopy screening 08/08/2012 Next due: 08/2015 ( & ) ? ? Esophagogastroduodenoscopy 09/24/2014 Bx's ? ? Colonoscopy screening 11/04/2015 Next due: 11/2020 (PH & ) FAMILY HISTORY: Family History Problem Relation Age of Onset ? ? Arthritis Mother ? ? Arthritis Father ? ? Asthma Brother ? ? Cancer Father esophagism ? ? Cancer-colon Mother ? ? Genitourinary Disease Daughter ? ? Genitourinary Disease Daughter ? ? Genitourinary Disease Son ? ? Heart Disease Maternal Grandmother ? ? Heart Disease Maternal Grandfather ALLERGIES: Allergies Allergen Reactions ? ? Almonds [Suwannee Oil] Respiratory Distress ? ? Demerol [Meperidine] Itching ? ? Keflex [Cephalexin] Respiratory Distress ? ? Latex Rash HABITS: Negative for tobacco, alcohol or recreational medications HISTORY OF PRESENT ILLNESS: (Please see scanned sheets for history. Examination at the time of admission revealed no interval change in the patient? s history or physical exam except as described below.) Please see above REVIEW OF SYSTEMS: A comprehensive review of systems was negative. PHYSICAL EXAM: BP 123/79 mmHg Pulse 117 Temp(Src) 98.9 ??F (37.2 ??C) Resp 18 Ht 1.575 m (5' 2) Wt 90.8 kg (200 lb 2.8 oz) BMI 36.60 kg/m2 LMP 10/13/2015 ? No Mood: appropriate Cardiovascular: Regular rate and rhythm. S1, S2, no murmur, click, gallop, or rubs. Pulse 117 Respiratory: clear to auscultation Abdomen: Soft, Non-tender, Gravid 20 weeks size Membrane Status: Intact Presentation: uncertain Impression: Intrauterine demise at 20+ weeks <22 weeks Rh negative Plan: Induction of uterine evacuation with cytotec under epidural anesthesia. Condolences expressed. Questions answered. Sarah Posada M.D. Active labor 11/21/2013 10/27/2016 Unstable lie, antepartum 11/21/2013 10/27/2016 Gestational diabetes mellitus (GDM) 10/30/2013 10/23/2022 Diarrhea 10/23/2022 Encounters Date Type Department Care Team Description 05/20/[address] [phone] Yvette Gan NP Screening 05/08/[address] [phone] Yvette Iglesias DO Refill Request (Pantoprazole ) 05/07/2023 Refill [facility] [address] [place] [id number] Edmundo Murguia MD Refill Request; BUDESONIDE from Last 3 Months Immunizations Name Administration Dates Next Due Td (Age >=7 Years) 10/19/2004 Family History Medical History Relation Name Comments Asthma Brother Other Daughter 1 Suzanne born with pseud amonas Vesicoureteral reflux Daughter 1 Suzanne chroni c UTI's Other Daughter 2 Lissa born 2 vessels in umbilica cord Vesicoureteral reflux Daughter 2 Lissa Other Daughter 6 stillborn Arthritis Father Cancer Father esophageal Dementia Maternal Aunt Lupus Maternal Aunt Heart Disease Maternal Grandfather Cancer Maternal Grandmother bladder Heart Disease Maternal Grandmother Arthritis Mother Cancer-colon Mother Throat cancer Mother Relation Name Status Comments Brother Alive Daughter 1 Suzanne Alive Daughter 2 Lissa Alive Daughter 3 Alive Daughter 4 Alive Daughter 5 Alive Daughter 6 Daughter 7 Alive Father (Age 60) Maternal Aunt Maternal Grandfather Maternal Grandmother Mother Alive Paternal Grandfather Paternal Grandmother Sister 1 Alive Sister 2 Alive Sister 3 Alive Son 1 Alive Son 2 Alive Son 3 Alive Social History Tobacco Use Types Packs/Day Years Used Date Smoking Tobacco: Never Smokeless Tobacco: Never Tobacco Cessation:Counseling Given: No Alcohol Use Standard Drinks/Week Comments Not Currently 0 (1 standard drink = 0.6 oz pur e alcohol) PHQ-2 Answer Date Recorded PHQ-2 TOTAL SCORE 0 10/23/2022 Social Connections Answer Date Recorded Frequency of Communication with Friends and Fami ly 0 10/23/2022 Financial Resource Strain Answer Date R ecorded Difficulty of Paying Living Expenses 3 10/23/2022 Difficulty of Paying Living Expenses Not on file 10/23/2022 Food Insecurity Answer Date Recorded Worried About Running Out of Food in the Last Ye ar 1 10/23/2022 Transportation Needs Answer Date Record ed Lack of Transportation (Medical) 1 10/23/2022 Housing Stability Answer Date Recorded Unable to Pay for Housing in the Last Year 1 10/23/2022 Sex and Gender Information Value Date Recorded Sex Assigned at Not on file Gender Identity Not on file Sexual Orientation Not on file Obstetrics History Para Term AB IAB SAB Ectopic Multiple Livin g Live Births 13 10 1 1 3 0 3 0 0 9 9 Date Outcome GA Total Labor Labor/2nd/3rd Weight Sex Delivery Anes PTL Jennifer A1 A5 Name Cl in 1989 SAB SPONTANE O US 08/02 Para M Vag Nelida ng 1995 SAB 16w 0d SPONTANEO US 10/27 Para M Vag Nelida ng 07/20 Para F Vag Nelida ng 10/24 Para F Vag Nelida ng 09/09 Para F Vag Nelida ng 11/26 Para F Vag Nelida ng 05/21 Para M Vag Nelida ng 2010 SAB SPONTANE O US 11/25 Para F Vag Nelida ng 11/21 Term 38w 5d 3.35 kg (7 lb 6 oz) F Vag Nelida ng 8 9 BG GINGER (TAMAna M A) Delivery Location:[facility] 03/06 20w 5d 0.19 kg (6.8 oz) F Vag Epidu ral N Feta l Deborah se 0 0 [place] Delivery Location: Last Filed Vital Signs Vital Sign Reading Time Taken Comments Blood Pressure 117/84 02/07/2023 2:44 PM CDT Pulse 93 02/07/2023 2:44 PM CDT Temperature 37 ??C (98.6 ??F) 11/01/2022 11:40 AM CDT Respiratory Rate 14 11/13/2022 11:07 AM CDT Oxygen Saturation 99% 02/07/2023 2:44 PM CDT Inhaled Oxygen Concentration - - Weight 90.9 kg (200 lb 6.4 oz) 02/07/2023 2:44 P M CDT Height 157.5 cm (5' 2) 12/25/2022 8:03 AM CDT Body Mass Index 36.65 12/25/2022 8:03 AM CDT Plan of Treatment Health Maintenance Due Date Last Done Comments COVID-19 vaccine series (#1) 03/25/1975 Tdap 1985 Tetanus booster 10/19/2014 10/19/2004 (Comp leted outside of [facility]), 10/19/2004 Mammogram for age 45-75 09/24/2019 Influenza for age 9-49 02/02/2023 Depression screening for age 12+ 10/25/2023 10/24/2022, 10/23/2022, 07/21/2020, Additional history exists BMI (ht and wt on same day) for age 18+ 12/26/2023 12/25/2022, 10/23/2022, 05/24/2021, Additional history exists Lipids for age 45-75 02/18/2026 02/18/2021 Colonoscopy through age 75 12/20/202612/20, 04/24/2018, 11/04/2015, Additional history exists HIV for age 15-65 Addressed 12/30/2015 (Ve rified in Care Everywhere or Patient Record) Overridden with the intention of not completing the topic Pap test for age 21-65 Discontinued , 07/23/2020, 06/05/2016 ([facility] Additional history exists Hepatitis C screening for age 18-79 Completed 10/23/2022 Pneumococcal series for age 6-64 Aged Out No longer eligible based on patient's age to complete this topic Advance Directives Latest Code Status on File Code Status Date Activated Date Inactivated Comments Full Code 11/01/2022 11:24 AM 11/01/2022 4:25 PM Question Answer Comments Code Status Discussion: Discussed Code Status History Code Status Date Activated Date Inactivated Comments Full Code 07/13/2022 1:13 PM 07/14/2022 11:56 AM Question Answer Comments Code Status Discussion: Reviewed Preferences Full Code 07/13/2022 7:11 AM 07/13/2022 1:13 PM Question Answer Comments Code Status Discussion: Reviewed Preferences Full Code 12/20/2021 11:47 AM 12/20/2021 4:26 PM Question Answer Comments Code Status Discussion: Discussed Full Code 03/06/2016 10:52 AM 03/06/2016 8:10 PM Care Teams People Greeter Relationship Specialty Start Date End Date Yvette Gan NP [address] [place] [id number] PCP - General Nurse Practitioner - Family 02/07/23
--- OUTSIDE RECORDS SUMMARY | 2023-06-28 12:56 | XMS_ITS | Encounter Summary ---
Author Name Unknown Organization [facility] Address [address] [place] [address] Care Team Providers Care Last Waxer Name Role Phone Elsewhere, Pcp Primary Care Provider Unavailabl e Reason for Referral * Outpatient (Routine) - Closed Specialty Diagnoses / Procedures Referred By Contac t Referred To Contact Obstetrics and Gynecology Edmundo Livingston Jr., M.D. [address] [place] [address] [facility] Region Referral ID Status Reason Start Date Expiration Date Visits Re quested Visits Authorized [id number] Closed 07/19/2022 07/18/2025 1 1 GING EDITOR Encounter Details Date Type Department Care Team (Late st Contact Info) Description 07/19/2022 Orders Only Department of Obstetrics and Gynecology in [address] [facility] [place] [id number] Edmundo Livingston Jr., M.D. [address] [place] [address] Social History Tobacco Use Types [...] How often do you attend chur or catholic services? More than 4 times per year 01/04/2021 Do you belong to any clubs o r organizations such as zoroastrian groups, unions, fraternal or athletic groups, or [...] Answer Date Recorded PHQ-2 Score 0 11/06/2018 [facility] of Occupat ional Health - Occupational Stress [...] place to sleep or slept in a penitentiary (including now)? No 01/04/2021 Nutrition Answer Date [...] as of this encounter Plan of Treatment Scheduled Referrals Name Type Priority Associated Diagnoses Order Schedule Obstetrics and Gynecology Post Op (clinic) Outpatient Referral Routine Expected: 07/19/2022 (Approximate), Expires: 10/17/2023 documented as of this encounter Visit Diagnoses Not on filedocumented in this encounter Additional Health Concerns Assessment Noted Time PHQ-9 Depression Total Score: 2 02/05/20 13 3:39 PM CDT documented as of this encounter Care Teams Last Waxer Relationship Specialty Start Date End Date Elsewhere, Pcp PCP - General Internal Medicine 07/12/22 documented as of this encounter
== END 2023-06-28 12:36 | disposition home or self-care (01) ==
PROVIDERS: PCP Nurse Practitioner Family; Visit Provider Nurse Practitioner Family
DX: R53.83 Other fatigue (principal); Z13.29 Encounter for screening for other suspected endocrine disorder; Z13.1 Encounter for screening for diabetes mellitus
CPT/HCPCS: 82947; 84443

== ENCOUNTER 2025-04-09 08:05 | Outpatient (CLI) | payer OTHER, SELFPAY | END 2025-04-09 08:06 | disposition home or self-care (01) | LOC: NFLDREF 04-13 03:30 | PROVIDERS: PCP Nurse Practitioner Family; Referring Provider Nurse Practitioner Family; Visit Provider Nurse Practitioner Family | DX: M25.50 Pain in unspecified joint (principal); R63.5 Abnormal weight gain; R53.83 Other fatigue; Z13.6 Encounter for screening for cardiovascular disorders | CPT/HCPCS: 80053; 80061; 82728; 84439; 84443; 84480; 84481; 84482; 86140; 86376; 86800 ==